=== PATIENT | male | born 1930 | race Caucasian/White ===

== ENCOUNTER 2017-05-15 10:24 | Inpatient (IN) | payer OTHER, BC ==
[2017-04-24 11:24] VITALS: BMI 25.0
--- NOTE | 2017-04-24 12:07 | PAT Medication Instructions ---
Service Date Apr 24, 2017. Current Home Medication List Acetaminophen (Tylenol Arthritis Ext Rel), 650 MG PO TID PRN for Pain or Fever Amlodipine (Norvasc), 5 MG PO QAM Carvedilol (Coreg), 6.25 MG PO BID Cholecalciferol (Vitamin D3), 1 TAB PO NOON Dabigatran Etexilate Mesylate (Pradaxa), 150 MG PO BID Famotidine (Pepcid), 20 MG PO BID Ferrous Gluconate (Ferrous Gluconate), 324 MG PO BIDM Finasteride (Proscar), 5 MG PO QPM Gabapentin (Neurontin), 400 MG PO BID Gabapentin (Neurontin), 600 MG PO HS Krill Oil (Krill Oil [place]-3), 1 TAB PO NOON Loratadine (Claritin), 10 MG PO HS Multiple Vitamin (Multivitamin), 1 TAB PO NOON Valsartan/Hctz (Diovan Hct 160MG/12.5MG), 1 TAB PO QAM [Colace], 1 TAB PO DAILY PRN for PRN Medication Instructions For Your Scheduled Surgery -Contact your tubing supervisor for instructions for: Dabigatran Etexilate Mesylate (Pradaxa), 150 MG PO BID MUST BE HELD FOR 5 DAYS FOR SPINAL ANESTHESIA - Hold the following medications 2 weeks prior to surgery: Krill Oil (Krill Oil [place]-3), 1 TAB PO NOON - Hold the following medications the morning of surgery: Ferrous Gluconate (Ferrous Gluconate), 324 MG PO BIDM Valsartan/Hctz (Diovan Hct 160MG/12.5MG), 1 TAB PO QAM [Colace], 1 TAB PO DAILY PRN for PRN - Take the following medications the morning of surgery with a sip of water: Acetaminophen (Tylenol Arthritis Ext Rel), 650 MG PO TID PRN for Pain or Fever ( if needed, can be taken up to four hours before surgery) Amlodipine (Norvasc), 5 MG PO QAM Carvedilol (Coreg), 6.25 MG PO BID Famotidine (Pepcid), 20 MG PO BID Gabapentin (Neurontin), 400 MG PO BID - Take the following medications as scheduled the night before surgery: Acetaminophen (Tylenol Arthritis Ext Rel), 650 MG PO TID PRN for Pain or Fever ( if needed) Cholecalciferol (Vitamin D3), 1 TAB PO NOON Famotidine (Pepcid), 20 MG PO BID Gabapentin (Neurontin), 400 MG PO BID Gabapentin (Neurontin), 600 MG PO HS Ferrous Gluconate (Ferrous Gluconate), 324 MG PO BIDM Loratadine (Claritin), 10 MG PO HS Multiple Vitamin (Multivitamin), 1 TAB PO NOON Finasteride (Proscar), 5 MG PO QPM If you have any questions please call us at [phone] or [phone] or [phone]
[2017-04-24 12:38] LABS: BASO % 0.9 %; BASO ABS # 0.04 K/uL (0-0.2); EOS % 1.7 %; EOS ABS # 0.08 K/uL (0-0.5); HEMATOCRIT 38.5 % (42-52); HEMOGLOBIN 13.3 g/dL (14.0-18.0); LYMPH % 18.7 %; LYMPH ABS # 0.87 K/uL (1.2-3.4); MEAN CELL VOLUME 92.1 fL (80-100); MEAN CORPUSCULAR HEMOGLOBIN 31.8 pg (25-34); MEAN CORPUSCULAR HGB CONC 34.5 g/dl (32-36); MEAN PLATELET VOLUME 8.9 fL (7.4-10.4); MONO % 8.4 %; MONO ABS # 0.39 K/uL (0.11-0.59); NEUT % 70.3 %; NEUT ABS # 3.27 K/uL (1.4-6.5); PLATELET COUNT 196 K/uL (130-400); RED CELL DISTRIBUTION WIDTH CV 12.9 % (11.5-14.5); RED CELL DISTRIBUTION WIDTH SD 43.2 fL (36.4-46.3); WHITE BLOOD COUNT 4.65 K/uL (4.8-10.8)
[2017-04-24 12:55] LABS: INR 1.4 (0.9-1.1)
[2017-04-24 13:01] LABS: PTT PATIENT 48.8 SECONDS (21.0-31.0)
[2017-04-24 14:36] LABS: BLOOD UREA NITROGEN 27 mg/dl (7-18); CALCIUM 9.5 mg/dl (8.5-10.1); CARBON DIOXIDE 31 mmol/L (21-32); CREATININE 1.22 mg/dl (0.60-1.40); GLUCOSE 96 mg/dl (70-99); SODIUM 132 mmol/L (136-145)
--- NOTE | 2017-05-08 18:33 | HISTORY & PHYSICAL EXAMINATION ---
DATE OF ADMISSION: 05/15/2017 CHIEF COMPLAINT: Right knee pain. HISTORY OF PRESENT ILLNESS: The patient is an 86-year-old male from [place] who is well known to me from previous left knee replacement done back in September of 2014. He has done well from that knee. He has a long history of bilateral knee pain, discomfort and has been unresponsive to conservative treatment. We put shots in his right knee which provided pretty minimal relief. He has become more debilitated by his knee pain and limiting his ability to get around. He now would like to proceed with right knee replacement. Pain is mostly medial. It is increased with weightbearing. The more he walks, the more it hurts. It also feels unstable and he is concerned about giving out. The patient does have a history of atrial fibrillation on Pradaxa. He has some underlying neuropathy as well. PAST MEDICAL HISTORY: Significant for: 1. Atrial fibrillation status post pacemaker placement, on Pradaxa. 1. Abdominal aneurysm. 2. Elevated cholesterol. 3. Hypertension. 4. Kidney stones. 5. Peptic ulcer disease. 6. Hiatal hernia. 7. Cataract. 8. Unspecified neuropathy. 9. Gastroesophageal reflux disease. PAST SURGICAL HISTORY: Include: 1. Hiatal hernia. 2. Hernia surgery. 3. Cardioversion. 4. Pacemaker placement. 5. Kidney stone surgery. 6. Left knee replacement on 10/06/2014. ALLERGIES: None. CURRENT MEDICINES: 1. Pradaxa 150 mg twice a day. 2. Gabapentin 400 mg twice a day. 3. Tylenol twice a day. 4. Valsartan/hydrochlorothiazide once a day. 5. Centrum Silver. 6. Vitamin D. 7. Gabapentin 8. . 9. Amlodipine. 10. Loratadine. 11. Carvedilol twice a day. 12. Colace. 13. Finasteride. SOCIAL HISTORY: An 86-year-old male. He is from [place]. He has a good social support system from his kids. Does not smoke. FAMILY HISTORY: Noncontributory. REVIEW OF SYSTEMS: Significant for atrial fibrillation/flutter. He is on Pradaxa. No other bleeding problems. No chest pain, no shortness of breath. No history of DVT or PE. PHYSICAL EXAMINATION: GENERAL: Reveals a pleasant elderly male. He looks to be in pretty good health. HEENT: Benign. NECK: Supple. No lymphadenopathy. LUNGS: Clear to auscultation. HEART: Has an irregularly irregular rate and rhythm. ABDOMEN: Soft, nontender, nondistended. EXTREMITIES: Grossly neurovascularly intact except as follows: Examination of the right knee reveals patient walks with bit of a limp. He has varus alignment to his knee with a varus thrust. Very thin, soft tissue envelope. Range of motion is 5-125. No instability. Examination of left knee reveals well-healed incision. Range of motion 0-120. No instability. Good straight leg raise. X-RAYS: X-rays of the right knee reviewed. Show advanced right knee DJD. He has complete loss of his medial joint space. He has subchondral sclerosis. He got some osteophytes off the medial femoral condyle and medial tibial plateau. ASSESSMENT: An 86-year-old gentleman with history of atrial fibrillation/flutter on Pradaxa, 2-1/2 years out from a left knee replacement with advanced right knee degenerative joint disease. It is really limiting his activities. He has failed conservative care and would like to have his right knee replaced. PLAN: I am going to take him to the operating room and do a right total knee replacement. The risks and benefits of this procedure were explained to the patient include but not limited to DVT, PE, , infection, neurological injury, vascular injury, bleeding problem, pain, limited range of motion, stiffness, failure to relieve his symptoms, incomplete relief of symptoms, need for further surgery in future, fracture, leg length inequality, nerve palsy, etc. The patient understands and desires to proceed. Informed consent was obtained. He does know to stop his Pradaxa 3 days preoperatively. We will start him back on this 24 hours postop at a prophylactic level. He did get quite confused last hospital visit and they thought it was due to Nucynta use. We will hold off on a nucynta this visit. We will use Dilaudid for pain control and tramadol and maybe some Toradol for the first 24 hours. As far as discharge plans, he will likely go to a [facility] facility closer to home. MEREDITH
[2017-05-15] VITALS (7 sets, daily range): BP systolic 137–181; BP diastolic 80–92; PULSE 60–78; TEMP 36.4–36.9; O2SAT 95–100; Ht 182.9 cm; Wt 83.5 kg
[~2017-05-15] VITALS: Ht 182.9 cm; Wt 83.5 kg
[~2017-05-15 10:24] MED LIST: ACET-1487 PO; ACETAMINOPHEN 500 MG TAB PO SCH; AMLO-110 PO; BUPIVACAINE 0.5 % 5 MG/1 ML PF 10ML VIAL ONE; BUPIVACAINE LIPOSOME 266 MG, BUPIVACAINE/EPINEPHRINE INJ 50 ML, SODIUM CHLORIDE 0.9% PF... INFIL SCH; CARV6.252 PO; CEFAZOLIN 2000MG IV PUSH 15 ML IV SCH; CHOL1000 PO; CLR10 PO; COLACE PO; DABI150C PO; FAMO20TA11 PO; FAMOTIDINE 20 MG TAB PO SCH; FINA5TAB PO; FRRG PO; GABA-113 PO; GABAPENTIN 300 MG CAP PO SCH; KRIL1CAP7 PO; LACTATED RINGER'S 1000ML 1,000 ML IV SCH; LACTATED RINGER'S 1000ML 500 ML IV SCH; LACTATED RINGER'S 1000ML IV SCH; METOCLOPRAMIDE HCL 10 MG TAB PO SCH; MULTTAB58 PO; NRN/100 PO; TRANEXAMIC ACID INJ 1,000 MG x 1 Bag Preop IV SCH; VALS160T58 PO
[2017-05-15] MEDS ORDERED: EpHEDrine SULFATE INJ 50 MG/ML AMP IV PRN ×2 (11:00→13:15)
[2017-05-15] MEDS ORDERED: ATROPINE SULFATE 0.1 MG/ML 5ML SYR IV PRN ×2 (11:00→13:15)
[2017-05-15] MEDS ORDERED: ONDANSETRON INJ 2 MG/ML 2 ML VIAL IV PRN ×2 (11:00→14:30)
[2017-05-15] MEDS ORDERED: FENTANYL CITRATE INJ 50 MCG/1 ML 2 ML VIAL IV PRN (11:00)
[2017-05-15] MEDS ORDERED: FENTANYL CITRATE INJ 50 MCG/1 ML 2 ML VIAL ONE (11:26)
[2017-05-15] MEDS ORDERED: MIDAZOLAM HCL 1 MG/ML 2ML VIAL ONE (11:26)
[2017-05-15 11:33] LABS: PTT PATIENT 27.3 SECONDS (21.0-31.0)
[2017-05-15] MEDS ORDERED: SODIUM CHLORIDE 0.9% PF 50 ML VIAL ONE (12:06)
[2017-05-15] MEDS ORDERED: BACITRACIN 50000 UNIT VIAL ONE (12:06)
[2017-05-15] MEDS ORDERED: BUPIVACAINE LIPOSOME 1/3% 266 MG/20 ML VIAL INFIL ONE (12:06)
[2017-05-15] MEDS ORDERED: BUPIVACAINE 0.25% 30 ML VIAL ONE ×2 (12:07→12:15)
[2017-05-15] MEDS ORDERED: EpINEphrine HCL INJ 1 MG/ML 1ML SYRINGE ONE (12:07)
[2017-05-15] MEDS ORDERED: ROPIVACAINE 0.5% 5 MG/ML 30 ML VIAL ONE (12:12)
--- NOTE | 2017-05-15 12:38 | History & Physical Bridge Note ---
H&P Re-Evaluation Bridge Note: I have examined the patient, reviewed the History & Physical and in the interval since the performance of the History & Physical I have noted the following changes of clinical significance: No changes noted
[2017-05-15] MEDS ORDERED: PROPOFOL IV EMULSION 10 MG/ML 20 ML VIAL IV ONE ×2 (12:45→13:29)
--- NOTE | 2017-05-15 14:22 | [facility] Post Operative Brief Note ---
Immediate Operative Summary Operative Date May 15, 2017. Pre-Operative Diagnosis Right Knee Degenerative Joint Disease Post-Operative Diagnosis Right Knee Degenerative Joint Disease Procedure(s) Performed Right Total Knee Arthroplasty Surgeon Dr Pierce Sample Book Maker Surgeon(s) Jeffrey Bonilla PA-C Estimated Blood Loss 50CC Findings Consistent with Post-Op Diagnosis Specimens A: Right Knee Bone and Tissue Drains None Anesthesia Type MAC Spinal Regional Complication(s) none Disposition Accompanied Pt To Recover: no Disposition: Recovery Room / PACU
[2017-05-15] MEDS ORDERED: ZOLPIDEM TARTRATE 5 MG TAB PO PRN (14:30)
[2017-05-15] MEDS ORDERED: HYDROmorphone INJ 0.5 MG/0.5 ML SYR IV PRN (14:30)
[2017-05-15] MEDS ORDERED: DOCUSATE SODIUM 100 MG CAP PO PRN (14:30)
[2017-05-15] MEDS ORDERED: MAGNESIUM HYDROXIDE SUSP 30 ML UDC PO PRN (14:30)
[2017-05-15] MEDS ORDERED: SILVER SULFADIAZINE 1% CR 50 GM JAR EXT PRN (14:30)
[2017-05-15] MEDS ORDERED: METOCLOPRAMIDE HCL INJ 5 MG/ML 2 ML VIAL IV PRN (14:30)
[2017-05-15] MEDS ORDERED: ALUMINUM/MAGNESIUM/SIMETH (MAALOX MAX) 30 ML UDC PO PRN (14:30)
[2017-05-15] MEDS ORDERED: LORATADINE 10 MG TAB PO PRN (14:30)
[2017-05-15] MEDS ORDERED: BISACODYL 10 MG SUPP PR PRN (14:30)
--- NOTE | 2017-05-15 15:04 | DIAGNOSTIC IMAGING REPORT ---
R KNEE 1 OR 2 VIEWS ROUTINE CLINICAL HISTORY: Postoperative evaluation. COMPARISON: Right knee radiographs April 24, 2017. FINDINGS: Alignment of the total right knee arthroplasty is anatomic. There is no fracture or unexpected radiopaque foreign body. Skin renetta are present. There is extensive vascular calcification. IMPRESSION: Expected findings following total right knee arthroplasty. Electronically signed by: Idris Hugo M.D. 05/15/2017 3:03 PM Dictated Date/Time: 05/15/2017 3:02 PM
--- NOTE | 2017-05-15 16:08 | Anesthesiology Progress Note ---
Anesthesia Post Op Note Date & Time May 15, 2017 at 15:23 Vital Signs Pain Intensity: 0 Vital Signs Past 12 Hours Date Time Temp Pulse Resp B/P (MAP) Pulse Ox O2 Delivery O2 Flow Rate FiO2 05/15/17 15:13 36.5 60 16 127/70 (96) 98 Nasal Cannula 2 05/15/17 15:05 61 19 126/71 96 Nasal Cannula 2 05/15/17 14:55 60 16 127/70 100 Nasal Cannula 2 05/15/17 14:45 60 16 127/68 100 Oxymask 10 05/15/17 14:35 60 16 120/70 100 Oxymask 10 05/15/17 14:28 35.9 65 16 125/76 97 Oxymask 10 05/15/17 11:00 36.4 78 18 147/80 98 Room Air Notes Mental Status: alert / awake / arousable, participated in evaluation Pt Amnestic to Procedure: Yes Nausea / Vomiting: adequately controlled Pain: adequately controlled Airway Patency, RR, SpO2: stable & adequate BP & HR: stable & adequate Hydration State: stable & adequate Neuraxial Anesthesia: was administered, sensory block is resolving Anesthetic Complications: no major complications apparent
--- NOTE | 2017-05-15 16:42 | OPERATIVE REPORT ---
DATE OF OPERATION: 05/15/2017 SURGEON: Raulito Pierce MD STAFF SOFTWARE ENGINEER: VIRAL Matt PREOPERATIVE DIAGNOSIS: Right knee degenerative joint disease. POSTOPERATIVE DIAGNOSIS: Same. PROCEDURE PERFORMED: Right cemented posterior stabilized total knee arthroplasty. COMPLICATIONS: None. ESTIMATED BLOOD LOSS: 50 mL. FLUID REPLACEMENT: 1300 mL crystalloid fluid replacement. ANESTHESIA: Spinal with adductor canal block. DRAINS: None. SPECIMENS: Right knee sent for pathology. OPERATIVE INDICATIONS: The patient is an 86-year-old fairly active, independent gentleman who has had a long history of knee problems. He has been through extensive conservative treatment over the years. He underwent a left knee replacement little over about 2-1/2 years ago and has done well from that. He has elected to proceed with a right total knee arthroplasty. OPERATIVE FINDINGS: Operative findings revealed advanced right knee DJD. He had extensive grade 4 changes in the medial femoral condyle and medial tibial plateau with eburnation in both areas. He had a varus deformity to his knee. Moderate size joint effusion. OPERATIVE IMPLANTS: Operative implants consisted of: 1. Biomet Vanguard size 70 right posterior stabilized femoral component. 2. Biomet size 75 tibial tray. 3. A 10-mm posterior stabilized polyethylene insert. 4. A 31 x 8 all poly patella. OPERATIVE PROCEDURE: The patient was taken to the operating room, identified and placed on the operating table in the supine position. All contact areas were appropriately padded. IV antibiotics were provided by anesthesia team. A spinal anesthetic and adductor canal block had been provided in the holding area. Ritter catheter was placed in sterile fashion. The right thigh tourniquet was then placed. The right lower extremity was then prepped and draped in the usual sterile fashion. The right leg was elevated and exsanguinated with Esmarch and tourniquet placed at 300 mmHg. An anterior approach to the right knee was then performed through a longitudinal incision centered over the patella. Sharp dissection was carried through subcutaneous tissue down to the level of the extensor mechanism. Medial parapatellar arthrotomy incision was made. Some subperiosteal dissection was carried out medially. The fat pad was resected from beneath the patellar tendon. The lateral patellofemoral ligament was released. Patella was everted and knee was flexed. The osteophytes were taken off the distal femur. The ACL and PCL were then released from the distal femur and the tibia subluxated anteriorly. The external tibial alignment jig was then placed in the anterior face of the tibia and adjusted 16 mm medially. Proximal tibial cut was made to remove about a millimeter of bone from the most deficient aspect of the medial side. Some osteophytes were taken off medial and posteromedially. Tibia was sized to a size 75. Attention was then drawn to the femur. The distal femur was entered with a sharp drill. Intramedullary canal was suctioned. A right 6-degree valgus cutting guide was placed. Distal femoral cutting block was pinned in place. Distal femoral cut was made to take an additional 3 mm of bone off the distal femur. The femur was then sized to a size 70. We did downsize this slightly. The AP cutting block was pinned parallel to the epicondylar axis, which was 3 degrees of external rotation. The anterior cut, anterior chamfer, posterior cut, and posterior chamfer cuts were made. Box cutting guide was placed and adjusted slightly lateral and the box cut was made. The knee was flexed. The remnants of the medial and lateral meniscus were excised. The osteophytes were taken off the posterior aspect of the femur. A trial femoral component was placed. Tibial tray was pinned in maximum external rotation and drill and stem punch were used to create a defect in the tibia for the tibial tray. The knee was then trialed and a 10-mm insert fit most appropriately. Attention was then drawn to the patella. The patella was cleaned of all soft tissues. Patella thickness measured 23 mm in thickness and it was cut down to 14. It was sized to a size 31 patella. Lug holes were drilled for a 31 patella. Lateral osteophyte was removed. Patella button was placed. Knee was taken through range of motion. Patella tracked nicely with no thumbs test. Attention was then drawn toward placement of permanent components. All trial components were removed. Bone plug was placed in the distal femur to limit blood loss. A double batch of Palacos G cement was mixed. A right size 70 posterior stabilized femoral component, size 75 tibial tray, a 10-mm posterior stabilized polyethylene insert, and a 31 x 8 all poly patella were then cemented in place. Knee was brought into full extension until cement hardened. A final cement check was then performed. The pericapsular tissues were injected with a total of 100 mL of a combination of 20 mL of Exparel, 30 mL of normal saline, and 50 mL of 0.25% Marcaine with epinephrine. The patient did receive 1 gram of tranexamic acid. The tourniquet was then let down for a tourniquet time of 57 minutes. Hemostasis was assured with the use of electrocautery. Extensor mechanism was then closed with combination of #1 PDS suture and #1 Vicryl suture in [id number] fashion. Extensor mechanism was checked and found to be intact. The subcutaneous tissues were then closed with #2 Dexon suture in a buried interrupted fashion. Skin was closed with skin renetta. Leg was then cleaned and dried and a sterile dressing of Xeroform, 4 x 4's, sterile cast and Rex bandage were applied. The patient then transferred to the recovery room in stable condition. The patient tolerated the procedure well with no complication. All needle and sponge counts were correct at the end of the operation. I attest to the content of the Intraoperative Record and any orders documented therein. Any exception s are noted below.
[2017-05-15] MEDS: D5W AND 1/2NSS + 20MEQ KCL 1,000 ML IV SCH (17:22)
[2017-05-15] MEDS: TRAMADOL HCL 50 MG TAB PO PRN ×2 (17:25→22:04)
[2017-05-15] MEDS: KETOROLAC TROMETHAMINE 15 MG/ML VIAL IV. SCH (17:27)
[2017-05-15] MEDS: FERROUS GLUCONATE 324 MG TAB PO SCH (18:01)
[2017-05-15] MEDS: ACETAMINOPHEN 500 MG TAB PO SCH (19:32)
[2017-05-15] MEDS: CEFAZOLIN IV 2,000 MG in SYRINGE 0 ML IV SCH (19:33)
[2017-05-15] MEDS ORDERED: TRANEXAMIC ACID INJ 1,000 MG in SODIUM CHLORIDE 0.9% 100ML 100 ML IV SCH (20:30)
[2017-05-15] MEDS: SENNA 8.6 MG TAB PO SCH (21:09)
[2017-05-15] MEDS: GABAPENTIN 300 MG CAP PO SCH (21:09)
[2017-05-15] MEDS: FINASTERIDE 5 MG TAB PO SCH (21:09)
[2017-05-15] MEDS: CARVEDILOL 6.25 MG TAB PO SCH (21:10)
[2017-05-15] MEDS: DOCUSATE SODIUM 100 MG CAP PO SCH (21:10)
[2017-05-15] MEDS: FAMOTIDINE 20 MG TAB PO SCH (21:14)
[2017-05-16] VITALS (7 sets, daily range): BP systolic 99–150; BP diastolic 57–77; PULSE 61–110; TEMP 36.4–37.1; O2SAT 92–99
[2017-05-16] MEDS: KETOROLAC TROMETHAMINE 15 MG/ML VIAL IV. SCH ×3 (00:39→12:32)
[2017-05-16] MEDS: D5W AND 1/2NSS + 20MEQ KCL 1,000 ML IV SCH ×2 (03:57→13:56)
[2017-05-16] MEDS: CEFAZOLIN IV 2,000 MG in SYRINGE 0 ML IV SCH (03:57)
[2017-05-16] MEDS: ACETAMINOPHEN 500 MG TAB PO SCH ×3 (03:57→21:13)
[2017-05-16 06:21] LABS: HEMATOCRIT 30.3 % (42-52); HEMOGLOBIN 10.5 g/dL (14.0-18.0); MEAN CELL VOLUME 93.5 fL (80-100); MEAN CORPUSCULAR HEMOGLOBIN 32.4 pg (25-34); MEAN CORPUSCULAR HGB CONC 34.7 g/dl (32-36); PLATELET COUNT 151 K/uL (130-400); RED CELL DISTRIBUTION WIDTH CV 13.2 % (11.5-14.5); RED CELL DISTRIBUTION WIDTH SD 45.8 fL (36.4-46.3); WHITE BLOOD COUNT 5.55 K/uL (4.8-10.8)
[2017-05-16 06:41] LABS: CALCIUM 8.1 mg/dl (8.5-10.1); CREATININE 1.26 mg/dl (0.60-1.40); POTASSIUM 4.8 mmol/L (3.5-5.1)
--- NOTE | 2017-05-16 07:36 | PROGRESS NOTE ---
DATE: 05/16/2017 SUBJECTIVE: An 86-year-old gentleman postop day 1 from right knee replacement. He is doing well. He is not really have any pain. He is awake, alert and oriented. No confusion issues so far. OBJECTIVE: VITAL SIGNS: Temperature is 37.1. Vital signs stable. GENERAL: Reveals a pleasant elderly male. He is sitting up in bed, looks quite comfortable. He is awake, alert and oriented. EXTREMITIES: Examination of the right knee reveals the leg to be well aligned. Dressing is clean, dry, and intact. He can dorsiflex and plantarflex his foot appropriately. He is neurologically intact. LABORATORY DATA: Hemoglobin 10.5, hematocrit 30.3. Electrolytes are stable. Sodium slightly low. ASSESSMENT: An 86-year-old gentleman postop day 1 from right knee replacement, doing pretty well. His pain is controlled. He has had no confusion issues today. PLAN: 1. DVT prophylaxis including thigh-high TEDs, SCDs, and will place him back on his anticoagulation starting 24 hours postop at a prophylactic level until discharge. 2. PT/OT. Weight bear as tolerated. Right total knee protocol. 3. Pain control, doing well with current pain regimen. We are going to try and stick to a Toradol for the first 24 hours and Tylenol and then strictly Tylenol if possible. We will use tramadol if needed after that. 4. Disposition. He is hoping to be discharged to [facility] rehabilitation program once medically stable.
[2017-05-16] MEDS: PANTOprazole SOD 40 MG TAB PO SCH (08:47)
[2017-05-16] MEDS: DOCUSATE SODIUM 100 MG CAP PO SCH ×2 (08:47→21:13)
[2017-05-16] MEDS: AMLODIPINE BESYLATE 5 MG TAB PO SCH (08:47)
[2017-05-16] MEDS: CARVEDILOL 6.25 MG TAB PO SCH ×2 (08:47→21:13)
[2017-05-16] MEDS: GABAPENTIN 400 MG CAP PO SCH ×2 (08:47→12:31)
[2017-05-16] MEDS: FERROUS GLUCONATE 324 MG TAB PO SCH ×3 (08:48→17:57)
[2017-05-16] MEDS: VALSARTAN 80 MG TAB PO SCH (08:48)
[2017-05-16] MEDS: CHOLECALCIFEROL 1000 INTER.UNIT TAB PO SCH (08:48)
[2017-05-16] MEDS: HYDROCHLOROTHIAZIDE 25 MG TAB PO SCH (08:48)
[2017-05-16] MEDS: FAMOTIDINE 20 MG TAB PO SCH ×2 (08:52→21:48)
[2017-05-16] MEDS ORDERED: MULTIVITAMIN TAB PO SCH (09:00)
[2017-05-16] MEDS: TRAMADOL HCL 50 MG TAB PO PRN (11:29)
[2017-05-16] MEDS: MULTIVITAMIN TAB PO SCH (12:31)
[2017-05-16] MEDS: DABIGATRAN ELEXILATE 75 MG CAP PO SCH ×2 (16:07→21:49)
[2017-05-16] MEDS ORDERED: FRRG PO (20:37)
[2017-05-16] MEDS ORDERED: ULT50X PO (20:39)
--- NOTE | 2017-05-16 20:45 | Discharge Instructions ---
Discharge Instructions Date of Service May 16, 2017. Admission Reason for Admission: Right Knee Degenerative Joint Disease Discharge Discharge Diagnosis / Problem: Right Knee Replacement Discharge Goals Goal(s): Decrease discomfort, Improve function, Increase independence, Improve disease control, Therapeutic intervention Activity Recommendations Activity Level: Assistance Required Therapies: Physical Therapy, Occupational Therapy Weightbearing Status: Right weightbearing . Additional Information Patient informed of condition: Yes Advance Directives: No DNR: No Level of Care: Acute Rehab Communicable Disease: No Prognosis: Improving Instructions / Follow-Up Instructions / Follow-Up ACTIVITY RECOMMENDATIONS: Physical Therapy: * You will go to physical therapy three times each week for four to six weeks after your surgery in order to regain your knee range of motion and to retrain your knee to work properly. * It is just as important to make sure you are getting your knee perfectly straight as it is to regain your knee bend. * Taking a pain pill an hour before therapy can help you have a more productive and comfortable therapy session. Home Exercise: * You were shown a series of exercises (heel props, heel slides, etc.) in the hospital. Do these exercises three to four times each day including the exercises you were shown in physical therapy. Walking: * Get up and walk several times each day. For the first four weeks, try not to stand or walk for more than one hour at a time. If you do stand or walk for more than one hour, you will not hurt anything, but your knee and leg will likely swell. * As you feel comfortable, you may change from the walker or crutches to a cane and then to independent walking. MEDICATIONS: New Medicine: * You will likely be taking one or more of these medications: 1. Tramadol - A quick and shorter-acting pain medication. Take one to two tablets every four to six hours to lessen your pain. 2. Iron Sulfate - Take two times each day for the month after surgery to help you replace the blood lost during surgery. 3. Eliquis - Thins your blood to lessen the chance of forming a blood clot. * The most common side effects of pain medicine and iron are nausea and constipation. If nausea or constipation is too much of a problem or if you have any questions about your new medicines or doses, call [facility] at [phone]. We will try to help you manage these issues. VERY IMPORTANT TO READ AND REVIEW" Pain: * The immediate post-operative period after knee replacement surgery is often quite painful. * You are given a prescription for pain medicine. You should take it, as directed, when you need it, especially before physical therapy and before going to bed. Pain that interferes with sleep is very common and can last several months. * You will likely need pain medicine for the first four to six weeks. It will not stop all of the pain. The pain will lessen and as you feel better, you may change to milder pain medicine such as Tylenol. * The most common side effects of pain medicine are nausea and constipation, so don't take more than you need. SPECIAL CARE INSTRUCTIONS: TEDs/Elastic Stockings: * The white elastic stockings help limit swelling and prevent blood clots from forming in your legs. The more you wear them, the more they work. * Wear them for six weeks after knee replacement surgery and four weeks after partial knee replacement. Prevention of Infection: * Take antibiotics one hour before any dental cleaning, dental work, urological procedure, gastrointestinal procedure or any invasive surgery in order to prevent your new joint from getting infected. * You may get the antibiotics from the doctor performing the procedure or you may call our office at before and we will call in a prescription to the pharmacy of your choice. Things to Watch For: * Drainage from the incision site that occurs more than one week after your surgery. * Severely increased knee/leg pain or swelling. * Increased redness at the incision site. * Fever above 102 degrees Fahrenheit. * Unusual chest pain or shortness of breath. * Unusual pain or burning with urination. Call [facility] at with any of the above problems or if you have any questions about your medicines or recovery. FOLLOW UP VISIT: Make an appointment to see your doctor for approximately two weeks after surgery for a progress check and staple removal by calling the office at . Current Hospital Diet Patient's current hospital diet: Regular Diet Discharge Diet Recommended Diet: Regular Diet Procedures Procedures Performed: Right Total Knee Arthroplasty Pending Studies Studies pending at discharge: no Medical Emergencies . Who to Call and When: Medical Emergencies: If at any time you feel your situation is an emergency, please call [phone] immediately. . Non-Emergent Contact Non-Emergency issues call your: Surgeon . . "Provider Documentation" section prepared by Raulito Pierce. . Core Measure Problem Core Measures: None
[2017-05-16] MEDS: FINASTERIDE 5 MG TAB PO SCH (21:48)
[2017-05-16] MEDS: SENNA 8.6 MG TAB PO SCH (21:49)
[2017-05-16] MEDS: GABAPENTIN 300 MG CAP PO SCH (21:51)
[2017-05-17] MEDS: ACETAMINOPHEN 500 MG TAB PO SCH ×3 (05:28→19:58)
[2017-05-17 06:17] VITALS: BP 138/78; PULSE 68; TEMP 36.5; O2SAT 93
--- NOTE | 2017-05-17 06:27 | PROGRESS NOTE ---
DATE: 05/17/2017 SUBJECTIVE: An 86-year-old gentleman postop day 2 from a right knee replacement. Quite a bit more pain this morning. No other complaints. No chest pain or shortness of breath. Not feeling dizzy or lightheaded. OBJECTIVE: VITAL SIGNS: Temperature 36.9. Vital signs stable. GENERAL: Reveals a pleasant elderly male. He is sitting up in his bedside chair. He is awake, alert and pretty appropriate. Maybe just a trace bit confused. LUNGS: Clear to auscultation. HEART: Has regular rate and rhythm. ABDOMEN: Soft, nontender, nondistended. EXTREMITIES: Grossly neurovascularly intact except as follows: Examination of the right leg reveals the dressing to be clean, dry and intact. Some moderate swelling. No significant drainage. Calf is soft and supple. He is neurologically intact. ASSESSMENT: An 86-year-old gentleman postop day 2 from a right knee replacement, doing pretty well. Bit more pain today, which is not expected. We have been trying to limit his main pain meds to avoid confusion issues. PLAN: 1. DVT prophylaxis including thigh-high TEDs, SCDs, and back on his Eliquis. 2. PT/OT. Weight bear as tolerated. Right total knee protocol. 3. Pain control, doing pretty well with current pain regimen. We really need to be careful with this gentleman to avoid confusion. He is happy with the exception of some pain to avoid the confusion issues. 4. Disposition: Plan to discharge to [place] rehab once accepted.
[2017-05-17 07:18] VITALS: BP 98/56; PULSE 106; TEMP 37; O2SAT 92
[2017-05-17] MEDS: PANTOprazole SOD 40 MG TAB PO SCH (07:52)
[2017-05-17] MEDS: DOCUSATE SODIUM 100 MG CAP PO SCH ×2 (07:52→20:27)
[2017-05-17] MEDS: FERROUS GLUCONATE 324 MG TAB PO SCH ×3 (07:52→18:16)
[2017-05-17] MEDS: DABIGATRAN ELEXILATE 75 MG CAP PO SCH ×2 (07:52→21:10)
[2017-05-17] MEDS: HYDROCHLOROTHIAZIDE 25 MG TAB PO SCH (07:53)
[2017-05-17] MEDS: CHOLECALCIFEROL 1000 INTER.UNIT TAB PO SCH (07:53)
[2017-05-17] MEDS: VALSARTAN 80 MG TAB PO SCH (07:53)
[2017-05-17] MEDS: FAMOTIDINE 20 MG TAB PO SCH ×2 (07:55→21:11)
[2017-05-17] MEDS: AMLODIPINE BESYLATE 5 MG TAB PO SCH (07:55)
[2017-05-17] MEDS: GABAPENTIN 400 MG CAP PO SCH ×2 (07:55→12:15)
[2017-05-17] MEDS: CARVEDILOL 6.25 MG TAB PO SCH ×2 (08:02→21:10)
[2017-05-17] MEDS: TRAMADOL HCL 50 MG TAB PO PRN ×2 (09:15→15:46)
[2017-05-17] MEDS: MULTIVITAMIN TAB PO SCH (12:15)
[2017-05-17 15:10] VITALS: BP 107/69; PULSE 72; TEMP 36.7; O2SAT 94
[2017-05-17] MEDS: SENNA 8.6 MG TAB PO SCH (20:27)
[2017-05-17 21:08] VITALS: BP 114/65; PULSE 61
[2017-05-17] MEDS: GABAPENTIN 300 MG CAP PO SCH (21:10)
[2017-05-17] MEDS: FINASTERIDE 5 MG TAB PO SCH (21:10)
[2017-05-17 23:19] VITALS: BP 125/73; PULSE 61; TEMP 36.6; O2SAT 94
[2017-05-17] MEDS ORDERED: NURSING DECISION MEDICATION ORDER SCH (23:45)
[2017-05-18] MEDS: ACETAMINOPHEN 500 MG TAB PO SCH ×3 (05:36→21:23)
[2017-05-18 07:30] VITALS: BP 142/70; PULSE 62; TEMP 36.4; O2SAT 96
[2017-05-18] MEDS: GABAPENTIN 400 MG CAP PO SCH ×2 (07:35→11:29)
[2017-05-18] MEDS: FERROUS GLUCONATE 324 MG TAB PO SCH ×3 (07:35→17:45)
--- NOTE | 2017-05-18 07:48 | Anesthesiology Progress Note ---
Anesthesia Post Op Note Date & Time May 18, 2017 at 07:47 Vital Signs Vital Signs Past 12 Hours Date Time Temp Pulse Resp B/P (MAP) Pulse Ox O2 Delivery O2 Flow Rate FiO2 05/17/17 23:19 36.6 61 16 125/73 (90) 94 Room Air 05/17/17 23:15 Room Air 05/17/17 21:08 61 114/65 (81) Notes Mental Status: alert / awake / arousable, participated in evaluation Pt Amnestic to Procedure: Yes Nausea / Vomiting: adequately controlled Pain: adequately controlled Airway Patency, RR, SpO2: stable & adequate BP & HR: stable & adequate Hydration State: stable & adequate Anesthetic Complications: no major complications apparent
--- NOTE | 2017-05-18 08:33 | PROGRESS NOTE ---
DATE: 05/18/2017 SUBJECTIVE: This is an 86-year-old gentleman postop day 3 from a right total knee replacement. He is doing well. Pain is a little bit better today. No chest pain or shortness of breath. Not feeling dizzy or lightheaded. I feel he is ready to go to rehabilitation. OBJECTIVE: VITAL SIGNS: Temperature 36.6. Vital signs stable. GENERAL: Reveals a pleasant elderly male. He is lying in bed, looks pretty comfortable. EXTREMITIES: Examination of the right leg reveals the dressing to be in place but a little bit of bloody drainage. Calf is soft and supple. He is neurologically intact. ASSESSMENT: An 86-year-old gentleman postop day 3 from a right knee replacement, doing well. He has had no confusion episodes. Pain is controlled. PLAN: 1. DVT prophylaxis including thigh high TEDs, SCDs, and back on his Pradaxa. He will be discharged back on his therapeutic dose of 150 mg twice a day. 2. PT, OT. Weight bear as tolerated. Right total knee protocol. 3. Pain control, doing well with current pain regimen. There has been no confusion episodes. 4. Disposition: Plan to discharge to rehab later today.
[2017-05-18 08:35] VITALS: O2SAT 96
[2017-05-18] MEDS: PANTOprazole SOD 40 MG TAB PO SCH (08:49)
[2017-05-18] MEDS: FAMOTIDINE 20 MG TAB PO SCH ×2 (08:50→20:51)
[2017-05-18] MEDS: CARVEDILOL 6.25 MG TAB PO SCH ×2 (08:51→20:53)
[2017-05-18] MEDS: DOCUSATE SODIUM 100 MG CAP PO SCH ×2 (08:51→20:52)
[2017-05-18] MEDS: DABIGATRAN ELEXILATE 75 MG CAP PO SCH ×2 (08:51→20:51)
[2017-05-18] MEDS: CHOLECALCIFEROL 1000 INTER.UNIT TAB PO SCH (08:53)
[2017-05-18] MEDS: AMLODIPINE BESYLATE 5 MG TAB PO SCH (08:53)
[2017-05-18] MEDS: HYDROCHLOROTHIAZIDE 25 MG TAB PO SCH (08:54)
[2017-05-18] MEDS: VALSARTAN 80 MG TAB PO SCH (08:54)
[2017-05-18] MEDS: TRAMADOL HCL 50 MG TAB PO PRN ×2 (10:12→16:33)
[2017-05-18] MEDS: MULTIVITAMIN TAB PO SCH (11:29)
[2017-05-18 11:49] VITALS: BP 112/70; PULSE 60; TEMP 36.4; O2SAT 96
[2017-05-18 14:59] VITALS: BP 135/89; PULSE 65; TEMP 36.5; O2SAT 95
[2017-05-18] MEDS: FINASTERIDE 5 MG TAB PO SCH (20:51)
[2017-05-18] MEDS: SENNA 8.6 MG TAB PO SCH (20:51)
[2017-05-18 20:56] VITALS: BP 96/61; PULSE 60
[2017-05-18] MEDS: GABAPENTIN 300 MG CAP PO SCH (21:23)
[2017-05-18 23:14] VITALS: BP 108/68; PULSE 61; TEMP 36.9; O2SAT 95
[2017-05-19] MEDS: ACETAMINOPHEN 500 MG TAB PO SCH (05:37)
[2017-05-19 07:48] VITALS: BP 146/73; PULSE 62; TEMP 36.6; O2SAT 95
[2017-05-19] MEDS: DOCUSATE SODIUM 100 MG CAP PO SCH (08:17)
[2017-05-19] MEDS: FAMOTIDINE 20 MG TAB PO SCH (08:18)
[2017-05-19] MEDS: DABIGATRAN ELEXILATE 75 MG CAP PO SCH (08:18)
[2017-05-19] MEDS: HYDROCHLOROTHIAZIDE 25 MG TAB PO SCH (08:20)
[2017-05-19] MEDS: AMLODIPINE BESYLATE 5 MG TAB PO SCH (08:21)
[2017-05-19] MEDS: CARVEDILOL 6.25 MG TAB PO SCH (08:22)
[2017-05-19] MEDS: GABAPENTIN 400 MG CAP PO SCH (08:23)
[2017-05-19] MEDS: FERROUS GLUCONATE 324 MG TAB PO SCH (08:23)
--- NOTE | 2017-05-19 08:50 | PROGRESS NOTE ---
DATE: 05/19/2017 SUBJECTIVE: An 86-year-old gentleman postop day 4 from right knee replacement. He is doing pretty well. Having some pain but nothing unusual. Denies any chest pain or shortness of breath. He was denied rehabilitation as he was doing too well, so he is going to go to [facility] unit. OBJECTIVE: VITAL SIGNS: Temperature is 36.6. Vital signs stable. PHYSICAL EXAMINATION: GENERAL: Reveals a pleasant elderly male. He is awake, alert and oriented. He is lying in bed and talking to his daughter. EXTREMITIES: Examination of the right leg reveals the dressing to be in place. A little bit of bloody drainage. He can dorsiflex and plantarflex his foot appropriately. He is neurologically intact. ASSESSMENT: An 86-year-old gentleman postop day 4 from right knee replacement. He is doing pretty well. Having some pain but really wanting to limit pain medicine to avoid confusion issues like last visit. He has been denied rehab and would like to go to [facility] the hospital [facility]. PLAN: 1. DVT prophylaxis including thigh-high TEDs, SCDs, and Pradaxa. 2. PT and OT. Weight bear as tolerated. Right total knee protocol. 3. Pain control, doing well with current pain regimen. We will stick with Tylenol and tramadol. 4. Disposition: Plan to discharge to a intermediate facility today.
[2017-05-19] MEDS: PANTOprazole SOD 40 MG TAB PO SCH (09:06)
[2017-05-19] MEDS: CHOLECALCIFEROL 1000 INTER.UNIT TAB PO SCH (09:07)
[2017-05-19] MEDS: VALSARTAN 80 MG TAB PO SCH (09:07)
[2017-05-19 09:10] VITALS: BP 146/73; PULSE 62; TEMP 36.6; O2SAT 95
[2017-05-19] MEDS: TRAMADOL HCL 50 MG TAB PO PRN (09:51)
== END 2017-05-19 10:22 | DRG 470 ==
LOC: C.ACU 10:24 → C.3E 10:50 → ENRESERV 14:57 → C.3E 05-16 17:24
PROVIDERS: ADMIT Orthopaedic Surgery Sports Medicine; ATTEND Orthopaedic Surgery Sports Medicine
PROC: 0SRC0J9 Replacement of Right Knee Joint with Synthetic Substitute, Cemented, Open Approach (ICD-10-PCS; principal; 2017-05-15 13:00)
DX: M17.11 Unilateral primary osteoarthritis, right knee (principal); I48.91 Unspecified atrial fibrillation; I10 Essential (primary) hypertension; E78.00 Pure hypercholesterolemia, unspecified; K21.9 Gastro-esophageal reflux disease without esophagitis; G62.9 Polyneuropathy, unspecified; Z79.01 Long term (current) use of anticoagulants; Z79.899 Other long term (current) drug therapy; Z95.0 Presence of cardiac pacemaker; Z96.652 Presence of left artificial knee joint